=== PATIENT | male | born 1980 | race Caucasian/White ===

== ENCOUNTER 2022-09-18 00:51 | Emergency (ER) | payer OTHER, SELFPAY ==
[2022-09-18 00:57] VITALS: BP 149/103; PULSE 61; RESP 16; TEMP 36.1; O2SAT 99; BMI 33.9
--- NOTE | 2022-09-18 01:22 | ED_ITS ---
HPI - General Adult General Chief complaint: Animal Bite Stated complaint: bit by raccoon - R hand Time Seen by Provider: 09/18/22 01:21 Source: patient and family Mode of arrival: ambulatory Limitations: no limitations History of Present Illness HPI narrative: 42-year-old male presents to the emergency department for evaluation of animal bite to his right index finger. Bite happened when he was attempting to move a live trap containing a raccoon. They had captured the raccoon in the live trap in the garden and he was transferring it to the pickup truck to drive the animal to a remote location to release him. He went to shift the animal in the back of the truck when the animal lunged towards the edge of the cage, biting his finger. The animal remains cage at this time. Animal was not exhibiting any s ymptoms of obvious illness. Patient rinsed the bitten area on his finger well, it did break the skin. He has never had the rabies vaccine series. He is planning to travel out of town in a few days. He reports that he is otherwise well, no long-term health problems. No long- term medications, no allergies, nonsmoker. ROS is notable for no other generalized, neurological, musculoskeletal, skin c oncerns. Related Data Home Medications Medication Instructions Recorded Confirmed No Known Home Medications 09/18/22 09/18/22 Allergies Allergy/AdvReac Type Severity Reaction Status Date / Time No Known Drug Allergies Allergy Verified 09/18/22 00:59 Exam Const: Vital Signs, click to edit/add: Vital Signs - 24 hr 09/18/22 00:57 Temperature 96.9 F L Pulse Rate [Left P ulse Oximeter] 61 Respiratory Rate 16 Blood Pressure [Ri ght Upper Arm] 149/103 H Pulse Oximetry 99 Oxygen Delivery Me thod Room Air Documenting provider has reviewed patient's vital signs: yes Common normals: no apparent distress General appearance: cooperative, comfortable and well kempt HENMT: Common normals: normocephalic Head and scalp: normocephalic Face and sinus: normal facial exam Mouth: oral and palatal mucosa normal Throat: posterior oropharynx normal Eye: Common normals: conjunctivae normal General eye: normal appearance of both eyes Conjunctiva: conjunctiva(e) normal Resp: Common normals: normal respiratory effort, no use of accessory muscles and clear to auscultation bilaterally Effort & inspection: able to speak in complete sentences Auscultation: clear to auscultation bilaterally Cardio: Common normals: regular rate, regular rhythm, S1 normal heart sound, S2 normal heart sound and no murmurs Rate: regular rate Rhythm: regular rhythm Heart sounds: S1 normal and S2 normal Extremity: Other: Affected right finger examined, to full-thickness lacerations with no evidence of foreign body or active bleeding noted, each are about 1 cm long. These are on the pad of the finger. No other associated injuries. Normal movement in the hand and finger. Psych: Appearance: well kempt Attitude: calm Insight: insight good Judgement: judgment good Skin: Narrative: Other than the animal bite lacerations, no other abnormalities noted. Course Course Hospital Course: Patient counseled that this would benefit from rabies vaccine series in rabies immune globulin. Wound has been well washed, with no signs of foreign body or evident. Injected with immunoglobulin per orders, initial dose of vaccine given per nurse.. Counseled on antibiotic ointment and Band-Aid to treat topically. Will need to return on typical dosing days for rabies vaccine series. He may coordinate this at his leisure at other facilities if they are out of town. We can fax orders if needed but we will not coordinate these injections for him. He is to contact Department of Health regarding the animal, they are unlikely to tested and will likely refer him to animal control. Vital Signs Vital signs: Initial Vital Signs Temperature 96.9 F L 09/18/22 00:57 Temperature Source Temporal Artery Scan 09/18/22 00:57 Pulse Rate 61 09/18/22 00:57 Respiratory Rate 16 09/18/22 00:57 Blood Pressure 149/103 H 09/18/22 00:57 Blood Pressure Mean 118 H 09/18/22 00:57 Pulse Oximetry 99 09/18/22 00:57 Oxygen Delivery Method Room Air 09/18/22 00:57 Vital Signs Temperature 96.9 F L 09/18/22 00:57 Pulse Rate 61 09/18/22 00:57 Respiratory Rate 16 09/18/22 00:57 Blood Pressure 149/103 H 09/18/22 00:57 Pulse Oximetry 99 09/18/22 00:57 Oxygen Delivery Method Room Air 09/18/22 00:57 Temperature 96.9 F L 09/18/22 00:57 Pulse Rate 61 09/18/22 00:57 Respiratory Rate 16 09/18/22 00:57 Blood Pressure 149/103 H 09/18/22 00:57 Pulse Oximetry 99 09/18/22 00:57 Oxygen Delivery Method Room Air 09/18/22 00:57 Discharge Plan Discharge Clinical Impression: Bite by animal Patient Disposition: Home w/ Parent or Adult Condition: Stable Instructions: Rabies Immune Globulin (By injection), Animal Bite (ED) Additional Instructions: As we discussed, I do recommend that you start the rabies vaccine series. You will need to come back for your additional injections. The wound was well washed and is at low risk of bacterial infection. I would like for you to apply antibiotic ointment once daily and keep covered until closed with a simple Band- Aid. Unfortunately, the vaccine timing may disrupt your trip. It may be possible to coordinate injections out of our area, you will need to seek and coordinate these on your own but we can fax orders if needed, as long as you have arranged for this with the receiving facility. Your injections will be today, which is Sunday. You will need an additional dose on , next Sunday and the following Sunday. As we discussed, raccoon's have a low risk of rabies but rabies itself is such a dangerous disease that I would certainly recommend vaccination for you. It is common to have discomfort at the injection sites. It is okay to use Tylenol and ibuprofen to lessen the discomfort. I would call the Department of Health in the morning to see if they want to test the animal, but likely they will not. They will likely refer you to animal control. Activity Level: No Restrictions Discharge Diet: Regular Prescriptions: No Action No Known Home Medications Stand Alone Forms: [employer] Info Instructions
[2022-09-18] MEDS: RABIES IMMUNE GLOBULIN 150 UNIT/ML INJ 2265 UNIT INFILTRATI (01:55)
--- NOTE | 2022-09-18 02:16 | ED.NURSE ---
written RX by MD Stover given to pt, pt will be out of town in [place] for day 3 of vaccine. pt education to call and arrange vaccine injection in his vacation location, pt agrees. pt states he will be back to this ER for the rest of the injections.
== END 2022-09-18 02:23 | disposition home or self-care (01) ==
LOC: ED 01:39
PROVIDERS: Emergency Provider Family Medicine
DX: S61.250A Open bite of right index finger without damage to nail, initial encounter (principal); W55.51XA Bitten by raccoon, initial encounter
CPT/HCPCS: 90377; 90471; 90675; 99283

== ENCOUNTER → 2022-10-02 03:47 | Outpatient (RCR) | payer OTHER, SELFPAY ==
[2022-09-25 04:10] VITALS: BP 152/96; PULSE 83; RESP 18; TEMP 36.7; O2SAT 99
[2022-10-02 04:17] VITALS: BP 148/92; PULSE 85; RESP 18; TEMP 36.2; O2SAT 96
--- NOTE | 2022-10-02 04:20 | PC.NURSE ---
patient came in for last dose of rabies vaccine, VS obtained, dose given in R deltoid. no further questions or concerns.
== END | disposition home or self-care (01) ==
LOC: EDOUT 09-25 04:08
PROVIDERS: Visit Provider Family Medicine
DX: Z23 Encounter for immunization (principal); Z20.3 Contact with and (suspected) exposure to rabies
CPT/HCPCS: 90471; 90675